=== PATIENT | female | born 1995 | race Two or more races ===

== ENCOUNTER 2024-09-06 12:25 | Emergency (ER) | payer OTHER ==
[~2024-09-06] VITALS: Ht 149.9 cm; Wt 68.0 kg
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
[2024-09-06] MEDS: ACETAMINOPHEN 325 MG TAB PO ONE (13:52)
[2024-09-06 13:53] VITALS: BP 140/78; PULSE 93; RESP 17; TEMP 98.2; O2SAT 98
[2024-09-06] MEDS: KETOROLAC TROMETH 30 MG/ML 1ML VIAL IM ONE (13:53)
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
== END 2024-09-06 14:15 | disposition home or self-care (01) ==
LOC: ER 12:25
DX: S46.912A Strain of unspecified muscle, fascia and tendon at shoulder and upper arm level, left arm, initial encounter (principal); V89.2XXA Person injured in unspecified motor-vehicle accident, traffic, initial encounter; Y93.89 Activity, other specified; Y92.89 Other specified places as the place of occurrence of the external cause; Y99.8 Other external cause status
CPT/HCPCS: 72040; 73020; 96372; 99284; J1885